=== PATIENT | female | born 1945 | race African-American/Black ===

== ENCOUNTER 2018-09-17 09:41 | Inpatient (IN) | payer MEDICARE, MEDICAID ==
[~2018-09-17] VITALS: Ht 154.9 cm; Wt 66.2 kg
[~2018-09-17 09:41] MED LIST: PHENL; RISP1; VENL25TA47
[2018-09-17] MEDS ORDERED: PHENL PO (09:57)
[2018-09-17] MEDS ORDERED: ASPI81 PO (09:57)
[2018-09-17] MEDS ORDERED: ATOR10TA84 PO (09:57)
[2018-09-17] MEDS ORDERED: OMEP20 PO (09:57)
[2018-09-17] MEDS ORDERED: AMLO-511 PO (09:57)
[2018-09-17 11:46] LABS: BASOPHILS % (AUTO) 0.6 % (0.0-2.0); EOSINOPHILS % (AUTO) 0.2 % (1.0-6.0); LYMPHOCYTES # (AUTO) 0.5 K/uL (1.0-4.8); LYMPHOCYTES % (AUTO) 8.2 % (22.0-44.0); MEAN CORPUSCULAR HEMOGLOBIN 29.7 pg (26.0-34.0); MEAN CORPUSCULAR HGB CONC 33.2 G/dL (31.0-37.0); MEAN CORPUSCULAR VOLUME 90 fL (80-100); MONOCYTES # (AUTO) 0.8 K/uL (0.1-1.0); MONOCYTES % (AUTO) 14.8 % (2.0-9.0); NEUTROPHILS # (AUTO) 4.2 K/uL (1.8-7.7); NEUTROPHILS % (AUTO) 76.2 % (40.0-70.0); PLATELET COUNT (AUTO) 406 K/uL (150-450); RED BLOOD CELL COUNT(AUTO) 3.69 MIL/uL (4.00-5.20); RED CELL DISTRIBUTION WIDTH 16.2 % (11.5-14.5)
[2018-09-17 12:16] LABS: ALANINE AMINOTRANSFERASE 16 U/L (12-78); ALBUMIN 1.9 g/dL (3.4-5.0); ALKALINE PHOSPHATASE 86 U/L (46-116); ANION GAP 12 mmol/L (8-16); ASPARTATE AMINOTRANSFERASE 27 U/L (15-37); BILIRUBIN,TOTAL 0.3 mg/dL (0.1-1.0); CALCIUM, TOTAL 8.1 mg/dL (8.8-10.5); CARBON DIOXIDE 29 mmol/L (22-29); CHLORIDE 93 mmol/L (98-107); CREATININE 0.42 mg/dL (0.60-1.30); GLUCOSE,RANDOM 100 mg/dL (70-110); SODIUM SERUM 134 mmol/L (136-145); TOTAL PROTEIN, SERUM 5.8 g/dL (6.4-8.2); UREA NITROGEN, BLOOD 7 mg/dL (7-18)
[2018-09-17 12:18] LABS: GLOMERULAR FILTR. RATE CALC > 60 mL/min (>60)
[2018-09-17 12:21] LABS: PHENYTOIN (DILANTIN) 28.2 mcg/mL (10.0-20.0)
[2018-09-17] MEDS ORDERED: ONDANSETRON HCL 4 MG/2 ML VIAL IVP PRN (13:00)
[2018-09-17] MEDS ORDERED: CLINDAMYCIN 600 MG/D5% WATER 50 ML IV ONE (13:00)
[2018-09-17] MEDS ORDERED: 0.9% SODIUM CHLORIDE 10 ML SYRINGE IVP PRN (13:00)
[2018-09-17] MEDS ORDERED: POTASSIUM CHLORIDE 10% 40 MEQ/30 ML LIQUID UDCUP PO ONE (13:00)
[2018-09-17 16:30] VITALS: BP 123/46
[2018-09-17] MEDS ORDERED: PNEUMOCOCCAL VACCINE POLYVALENT 0.5 ML VIAL [PPSV23] IM ONE (16:30)
[2018-09-17] MEDS: ACETAMINOPHEN 325 MG TABLET PO PRN ×2 (17:17→23:34)
[2018-09-17 20:13] VITALS: BP 109/44
[2018-09-17 23:31] VITALS: BP 105/45
[2018-09-17] MEDS ORDERED: ZOLPIDEM TARTRATE 5 MG TABLET PO PRN (23:45)
[2018-09-17] MEDS ORDERED: IPRATROPIUM BROMIDE 0.5 MG/2.5 ML NEB SOLUTION NEB PRN (23:45)
[2018-09-17] MEDS ORDERED: HYDROCODONE/ACETAMINOPHEN 5-325 MG TABLET PO PRN (23:45)
[2018-09-17] MEDS ORDERED: BISACODYL 10 MG RECTAL RECTAL SUPPOSITORY PR PRN (23:45)
[2018-09-17] MEDS ORDERED: ALBUTEROL SULFATE 2.5 MG/0.5 ML NEB SOLUTION NEB PRN (23:45)
[2018-09-17] MEDS ORDERED: MAGNESIUM HYDROXIDE SUSPENSION 30 ML UDCUP PO PRN (23:45)
[2018-09-17] MEDS ORDERED: MORPHINE SULFATE 4 MG/ML SYRINGE IVP PRN (23:45)
[2018-09-18] MEDS: HEPARIN SODIUM,PORCINE 5,000 UNITS/ML VIAL SQ SCH ×3 (00:17→16:46)
[2018-09-18] MEDS: PHENYTOIN 100 MG/4 ML SUSPENSION UDCUP PO SCH ×2 (00:24→09:12)
[2018-09-18 03:41] VITALS: BP 117/52
[2018-09-18] MEDS: ACETAMINOPHEN 325 MG TABLET PO PRN (03:44)
[2018-09-18 07:20] LABS: ANION GAP 9 mmol/L (8-16); CALCIUM, TOTAL 8.2 mg/dL (8.8-10.5); CARBON DIOXIDE 30 mmol/L (22-29); CHLORIDE 94 mmol/L (98-107); CREATININE 0.67 mg/dL (0.60-1.30); GLUCOSE,RANDOM 84 mg/dL (70-110); POTASSIUM 3.2 mmol/L (3.5-5.1); SODIUM SERUM 133 mmol/L (136-145); UREA NITROGEN, BLOOD 6 mg/dL (7-18)
[2018-09-18 07:22] LABS: GLOMERULAR FILTR. RATE CALC > 60 mL/min (>60)
[2018-09-18 08:26] VITALS: BP 112/53
[2018-09-18] MEDS: DOCUSATE SODIUM 100 MG CAPSULE PO SCH ×2 (08:41→21:00)
[2018-09-18] MEDS: AmLODIPine BESYLATE 5 MG TABLET PO SCH (09:00)
[2018-09-18] MEDS ORDERED: PANTOPRAZOLE SODIUM 40 MG/VIAL IVP SCH (09:00)
[2018-09-18] MEDS: ATORVASTATIN CALCIUM 10 MG TABLET PO SCH (09:12)
[2018-09-18] MEDS: OMEPRAZOLE 20 MG CAPSULE PO SCH (09:12)
[2018-09-18] MEDS: ASPIRIN 81 MG CHEWABLE TABLET PO SCH (09:12)
[2018-09-18] MEDS ORDERED: MAGNESIUM OXIDE 400 MG TABLET PO PRN (11:15)
[2018-09-18] MEDS ORDERED: MAGNESIUM SULFATE 2 GM/WATER 50 ML IV PRN (11:15)
[2018-09-18] MEDS ORDERED: MAGNESIUM SULFATE 4 GM/WATER 100 ML IV PRN (11:15)
[2018-09-18 12:01] LABS: ALBUMIN 1.9 g/dL (3.4-5.0)
[2018-09-18 12:07] VITALS: BP 117/51
[2018-09-18 12:36] LABS: MAGNESIUM 1.1 mg/dL (1.80-2.40)
[2018-09-18] MEDS: POTASSIUM CHLORIDE 20 MEQ ER TABLET PO PRN (12:50)
[2018-09-18] MEDS ORDERED: SODIUM CHLORIDE 0.9% 250 ML IV ONE (13:15)
[2018-09-18] MEDS: CLINDAMYCIN 300 MG/D5% WATER 50 ML IV SCH ×2 (13:22→18:42)
[2018-09-18 13:54] LABS: APPEARANCE,URINE HAZY (CLEAR); BILIRUBIN,URINE PRELIM. POSITIVE (NEGATIVE); GLUCOSE, URINE (UA) NEGATIVE (NEGATIVE); KETONES,URINE 15 mg/dL (NEGATIVE); LEUKOCYTE ESTERASE ,URINE SMALL (NEGATIVE); NITRATE,URINE NEGATIVE (NEGATIVE); OCCULT BLOOD,URINE LARGE (NEGATIVE); PROTEIN,URINE POS 1+ (NEGATIVE)
[2018-09-18 14:04] LABS: BACTERIA,URINE Few /HPF (None Seen); YEAST,URINE Few /HPF (None Seen)
[2018-09-18 14:05] LABS: SQUAMOUS EPITHELIAL CELL,UR Rare /LPF (None Seen)
[2018-09-18 16:29] VITALS: BP 97/44
[2018-09-18 19:15] VITALS: BP 106/46
[2018-09-18 23:15] VITALS: BP 103/58
[2018-09-19] MEDS: CLINDAMYCIN 300 MG/D5% WATER 50 ML IV SCH ×5 (00:02→23:13)
[2018-09-19] MEDS: HEPARIN SODIUM,PORCINE 5,000 UNITS/ML VIAL SQ SCH ×4 (00:03→23:12)
[2018-09-19 04:45] VITALS: BP 109/56
[2018-09-19 05:33] LABS: MAGNESIUM 2.5 mg/dL (1.80-2.40)
[2018-09-19] MEDS: OMEPRAZOLE 20 MG CAPSULE PO SCH (08:02)
[2018-09-19] MEDS: DOCUSATE SODIUM 100 MG CAPSULE PO SCH ×2 (08:02→20:26)
[2018-09-19] MEDS: ATORVASTATIN CALCIUM 10 MG TABLET PO SCH (08:02)
[2018-09-19] MEDS: ASPIRIN 81 MG CHEWABLE TABLET PO SCH (08:02)
[2018-09-19] MEDS: AmLODIPine BESYLATE 5 MG TABLET PO SCH (08:03)
[2018-09-19 08:18] VITALS: BP 99/41
[2018-09-19 10:16] LABS: POTASSIUM 3.4 mmol/L (3.5-5.1)
[2018-09-19] MEDS: POTASSIUM CHLORIDE 20 MEQ ER TABLET PO PRN (11:03)
[2018-09-19 11:23] VITALS: BP 103/56
[2018-09-19 15:19] LABS: BASOPHILS % (AUTO) 0.3 % (0.0-2.0); EOSINOPHILS % (AUTO) 3.3 % (1.0-6.0); HEMOGLOBIN 10.6 g/dL (12.0-16.0); LYMPHOCYTES # (AUTO) 0.8 K/uL (1.0-4.8); LYMPHOCYTES % (AUTO) 15.1 % (22.0-44.0); MEAN CORPUSCULAR HEMOGLOBIN 29.2 pg (26.0-34.0); MEAN CORPUSCULAR HGB CONC 33.1 G/dL (31.0-37.0); MEAN CORPUSCULAR VOLUME 88 fL (80-100); MONOCYTES # (AUTO) 0.4 K/uL (0.1-1.0); MONOCYTES % (AUTO) 7.6 % (2.0-9.0); NEUTROPHILS # (AUTO) 3.9 K/uL (1.8-7.7); NEUTROPHILS % (AUTO) 73.7 % (40.0-70.0); PLATELET COUNT (AUTO) 299 K/uL (150-450); RED BLOOD CELL COUNT(AUTO) 3.63 MIL/uL (4.00-5.20)
[2018-09-19 15:41] VITALS: BP 106/50
[2018-09-19 15:46] LABS: ANION GAP 2 mmol/L (8-16); CALCIUM, TOTAL 7.9 mg/dL (8.8-10.5); CARBON DIOXIDE 35 mmol/L (22-29); CHLORIDE 95 mmol/L (98-107); CREATININE 0.55 mg/dL (0.60-1.30); GLUCOSE,RANDOM 106 mg/dL (70-110); POTASSIUM 4.1 mmol/L (3.5-5.1); SODIUM SERUM 132 mmol/L (136-145); UREA NITROGEN, BLOOD 16 mg/dL (7-18)
[2018-09-19 15:47] LABS: GLOMERULAR FILTR. RATE CALC > 60 mL/min (>60)
[2018-09-19 15:52] LABS: ALANINE AMINOTRANSFERASE 541 U/L (12-78); ALBUMIN 1.7 g/dL (3.4-5.0); ALKALINE PHOSPHATASE 122 U/L (46-116); BILIRUBIN,TOTAL 0.5 mg/dL (0.1-1.0); TOTAL PROTEIN, SERUM 5.1 g/dL (6.4-8.2)
[2018-09-19 15:53] LABS: ASPARTATE AMINOTRANSFERASE 1910 U/L (15-37)
[2018-09-19 16:30] LABS: PHENYTOIN (DILANTIN) 19.3 mcg/mL (10.0-20.0)
[2018-09-19 19:37] VITALS: BP 108/43
[2018-09-19 23:47] VITALS: BP 110/47
[2018-09-20 04:26] VITALS: BP 117/55
[2018-09-20] MEDS: CLINDAMYCIN 300 MG/D5% WATER 50 ML IV SCH ×2 (05:14→11:17)
[2018-09-20 06:03] LABS: BASOPHILS % (AUTO) 0.4 % (0.0-2.0); EOSINOPHILS % (AUTO) 1.4 % (1.0-6.0); HEMATOCRIT 33.1 % (36-46); LYMPHOCYTES # (AUTO) 0.7 K/uL (1.0-4.8); LYMPHOCYTES % (AUTO) 13.3 % (22.0-44.0); MEAN CORPUSCULAR HEMOGLOBIN 29.1 pg (26.0-34.0); MEAN CORPUSCULAR HGB CONC 33.2 G/dL (31.0-37.0); MEAN CORPUSCULAR VOLUME 88 fL (80-100); MONOCYTES # (AUTO) 0.6 K/uL (0.1-1.0); MONOCYTES % (AUTO) 11.9 % (2.0-9.0); NEUTROPHILS # (AUTO) 3.6 K/uL (1.8-7.7); PLATELET COUNT (AUTO) 294 K/uL (150-450); RED BLOOD CELL COUNT(AUTO) 3.78 MIL/uL (4.00-5.20); RED CELL DISTRIBUTION WIDTH 15.9 % (11.5-14.5)
[2018-09-20 06:59] LABS: ALANINE AMINOTRANSFERASE 622 U/L (12-78); ALBUMIN 1.7 g/dL (3.4-5.0); ALKALINE PHOSPHATASE 127 U/L (46-116); ANION GAP 6 mmol/L (8-16); BILIRUBIN,TOTAL 0.5 mg/dL (0.1-1.0); CALCIUM, TOTAL 7.7 mg/dL (8.8-10.5); CARBON DIOXIDE 32 mmol/L (22-29); CHLORIDE 93 mmol/L (98-107); CREATININE 0.57 mg/dL (0.60-1.30); GLUCOSE,RANDOM 75 mg/dL (70-110); POTASSIUM 4.2 mmol/L (3.5-5.1); SODIUM SERUM 131 mmol/L (136-145); TOTAL PROTEIN, SERUM 5.1 g/dL (6.4-8.2); UREA NITROGEN, BLOOD 17 mg/dL (7-18)
[2018-09-20 07:01] LABS: ASPARTATE AMINOTRANSFERASE 1800 U/L (15-37); GLOMERULAR FILTR. RATE CALC > 60 mL/min (>60)
[2018-09-20 07:30] VITALS: BP 107/44
[2018-09-20] MEDS: HEPARIN SODIUM,PORCINE 5,000 UNITS/ML VIAL SQ SCH ×3 (08:12→23:48)
[2018-09-20] MEDS: ASPIRIN 81 MG CHEWABLE TABLET PO SCH (08:12)
[2018-09-20] MEDS: DOCUSATE SODIUM 100 MG CAPSULE PO SCH ×2 (08:13→21:00)
[2018-09-20] MEDS: OMEPRAZOLE 20 MG CAPSULE PO SCH (08:13)
[2018-09-20] MEDS: ATORVASTATIN CALCIUM 10 MG TABLET PO SCH (08:13)
[2018-09-20] MEDS: AmLODIPine BESYLATE 5 MG TABLET PO SCH (08:13)
[2018-09-20] MEDS: ONDANSETRON HCL 4 MG/2 ML VIAL IVP PRN ×2 (10:35→16:58)
[2018-09-20 11:56] VITALS: BP 94/52
[2018-09-20] MEDS: ACETAMINOPHEN 325 MG TABLET PO PRN (12:00)
[2018-09-20] MEDS ORDERED: SODIUM CHLORIDE 0.9% 250 ML IV ONE (12:15)
[2018-09-20] MEDS: SODIUM CHLORIDE 0.9% 1,000 ML IV SCH (14:12)
[2018-09-20 15:40] VITALS: BP 104/44
[2018-09-20] MEDS ORDERED: BARIUM SULFATE 0.1% SUSPENSION 450 ML BOTTLE ONE (16:51)
[2018-09-20] MEDS ORDERED: IOVERSOL 320 MG/ML 100 ML VIAL ONE (18:41)
[2018-09-20] MEDS ORDERED: SODIUM CHLORIDE 0.9% 100 ML ONE (18:41)
[2018-09-20 20:00] VITALS: BP 115/56
[2018-09-20 23:40] VITALS: BP 111/69
[2018-09-21] MEDS: SODIUM CHLORIDE 0.9% 1,000 ML IV SCH ×3 (01:05→19:59)
[2018-09-21 04:29] VITALS: BP 113/49
[2018-09-21 07:28] LABS: HEMATOCRIT 32.1 % (36-46); HEMOGLOBIN 10.8 g/dL (12.0-16.0); MEAN CORPUSCULAR HEMOGLOBIN 29.3 pg (26.0-34.0); MEAN CORPUSCULAR HGB CONC 33.6 G/dL (31.0-37.0); MEAN CORPUSCULAR VOLUME 87 fL (80-100); PLATELET COUNT (AUTO) 267 K/uL (150-450); RED BLOOD CELL COUNT(AUTO) 3.68 MIL/uL (4.00-5.20); RED CELL DISTRIBUTION WIDTH 16.1 % (11.5-14.5)
[2018-09-21 07:36] VITALS: BP 126/54
[2018-09-21 08:00] LABS: ALANINE AMINOTRANSFERASE 684 U/L (12-78); ALBUMIN 1.7 g/dL (3.4-5.0); ALKALINE PHOSPHATASE 125 U/L (46-116); ANION GAP 4 mmol/L (8-16); BILIRUBIN,TOTAL 0.5 mg/dL (0.1-1.0); CALCIUM, TOTAL 7.6 mg/dL (8.8-10.5); CARBON DIOXIDE 31 mmol/L (22-29); CHLORIDE 94 mmol/L (98-107); CREATININE 0.43 mg/dL (0.60-1.30); GLUCOSE,RANDOM 76 mg/dL (70-110); POTASSIUM 4.6 mmol/L (3.5-5.1); SODIUM SERUM 129 mmol/L (136-145); TOTAL PROTEIN, SERUM 5.1 g/dL (6.4-8.2); UREA NITROGEN, BLOOD 14 mg/dL (7-18)
[2018-09-21 08:01] LABS: ASPARTATE AMINOTRANSFERASE 1526 U/L (15-37); GLOMERULAR FILTR. RATE CALC > 60 mL/min (>60)
[2018-09-21] MEDS: DOCUSATE SODIUM 100 MG CAPSULE PO SCH ×2 (09:22→19:59)
[2018-09-21] MEDS: ASPIRIN 81 MG CHEWABLE TABLET PO SCH (09:22)
[2018-09-21] MEDS: OMEPRAZOLE 20 MG CAPSULE PO SCH (09:23)
[2018-09-21] MEDS: ATORVASTATIN CALCIUM 10 MG TABLET PO SCH (09:23)
[2018-09-21] MEDS: HEPARIN SODIUM,PORCINE 5,000 UNITS/ML VIAL SQ SCH ×2 (09:25→15:41)
[2018-09-21] MEDS: AmLODIPine BESYLATE 5 MG TABLET PO SCH (09:26)
[2018-09-21 10:14] LABS: BAND NEUTROPHILS % (MANUAL) 6 % (0-5); BASOPHILS % (MANUAL) 1 % (0-2); LYMPHOCYTES % (MANUAL) 4 % (22-44); MONOCYTES % (MANUAL) 16 % (2-9); SEGMENTED NEUTROPHILS % 73 % (40-70)
[2018-09-21 11:27] VITALS: BP 111/47
[2018-09-21] MEDS ORDERED: PHENYTOIN SODIUM 100 MG ER CAPSULE PO ONE (14:00)
[2018-09-21 15:14] VITALS: BP 111/42
[2018-09-21 19:55] VITALS: BP 101/49
[2018-09-22] VITALS (7 sets, daily range): BP systolic 100–114; BP diastolic 42–63
[2018-09-22] MEDS: HEPARIN SODIUM,PORCINE 5,000 UNITS/ML VIAL SQ SCH ×4 (00:25→23:47)
[2018-09-22] MEDS: SODIUM CHLORIDE 0.9% 1,000 ML IV SCH ×2 (05:20→16:39)
[2018-09-22 06:03] LABS: BASOPHILS % (AUTO) 0.3 % (0.0-2.0); EOSINOPHILS % (AUTO) 1.2 % (1.0-6.0); HEMOGLOBIN 9.6 g/dL (12.0-16.0); LYMPHOCYTES # (AUTO) 0.8 K/uL (1.0-4.8); LYMPHOCYTES % (AUTO) 14.9 % (22.0-44.0); MEAN CORPUSCULAR HEMOGLOBIN 29.7 pg (26.0-34.0); MEAN CORPUSCULAR HGB CONC 34.1 G/dL (31.0-37.0); MEAN CORPUSCULAR VOLUME 87 fL (80-100); MONOCYTES % (AUTO) 19.1 % (2.0-9.0); NEUTROPHILS # (AUTO) 3.5 K/uL (1.8-7.7); NEUTROPHILS % (AUTO) 64.5 % (40.0-70.0); PLATELET COUNT (AUTO) 249 K/uL (150-450); RED BLOOD CELL COUNT(AUTO) 3.22 MIL/uL (4.00-5.20); RED CELL DISTRIBUTION WIDTH 16.1 % (11.5-14.5)
[2018-09-22 06:16] LABS: INR 1.2 (0.9-1.1); PROTHROMBIN TIME 12.2 SEC (9.4-11.6)
[2018-09-22 06:32] LABS: ALANINE AMINOTRANSFERASE 642 U/L (12-78); ALBUMIN 1.7 g/dL (3.4-5.0); ALKALINE PHOSPHATASE 151 U/L (46-116); ANION GAP 3 mmol/L (8-16); BILIRUBIN,TOTAL 0.5 mg/dL (0.1-1.0); CALCIUM, TOTAL 7.4 mg/dL (8.8-10.5); CARBON DIOXIDE 30 mmol/L (22-29); CHLORIDE 96 mmol/L (98-107); CREATININE 0.32 mg/dL (0.60-1.30); GLUCOSE,RANDOM 83 mg/dL (70-110); POTASSIUM 4.6 mmol/L (3.5-5.1); SODIUM SERUM 129 mmol/L (136-145); TOTAL PROTEIN, SERUM 4.6 g/dL (6.4-8.2); UREA NITROGEN, BLOOD 8 mg/dL (7-18)
[2018-09-22 06:34] LABS: ASPARTATE AMINOTRANSFERASE 1044 U/L (15-37); GLOMERULAR FILTR. RATE CALC > 60 mL/min (>60)
[2018-09-22] MEDS: OMEPRAZOLE 20 MG CAPSULE PO SCH (08:19)
[2018-09-22] MEDS: AmLODIPine BESYLATE 5 MG TABLET PO SCH (08:19)
[2018-09-22] MEDS: DOCUSATE SODIUM 100 MG CAPSULE PO SCH ×2 (08:19→23:46)
[2018-09-22] MEDS: ASPIRIN 81 MG CHEWABLE TABLET PO SCH (08:19)
[2018-09-22] MEDS: ATORVASTATIN CALCIUM 10 MG TABLET PO SCH (08:19)
[2018-09-22] MEDS ORDERED: IOVERSOL 320 MG/ML 100 ML VIAL ONE (15:56)
[2018-09-22] MEDS ORDERED: SODIUM CHLORIDE 0.9% 100 ML ONE (15:57)
[2018-09-23 05:09] VITALS: BP 110/43
[2018-09-23] MEDS: SODIUM CHLORIDE 0.9% 1,000 ML IV SCH ×3 (06:16→22:48)
[2018-09-23 06:28] LABS: ALANINE AMINOTRANSFERASE 428 U/L (12-78); ALBUMIN 1.6 g/dL (3.4-5.0); ALKALINE PHOSPHATASE 137 U/L (46-116); ANION GAP 2 mmol/L (8-16); ASPARTATE AMINOTRANSFERASE 405 U/L (15-37); BILIRUBIN,TOTAL 0.3 mg/dL (0.1-1.0); CALCIUM, TOTAL 7.8 mg/dL (8.8-10.5); CARBON DIOXIDE 30 mmol/L (22-29); CHLORIDE 102 mmol/L (98-107); CREATININE 0.34 mg/dL (0.60-1.30); GLUCOSE,RANDOM 76 mg/dL (70-110); POTASSIUM 4.6 mmol/L (3.5-5.1); SODIUM SERUM 134 mmol/L (136-145); TOTAL PROTEIN, SERUM 4.9 g/dL (6.4-8.2); UREA NITROGEN, BLOOD 4 mg/dL (7-18)
[2018-09-23 06:29] LABS: GLOMERULAR FILTR. RATE CALC > 60 mL/min (>60)
[2018-09-23 06:41] LABS: BASOPHILS % (AUTO) 0.4 % (0.0-2.0); HEMATOCRIT 30.3 % (36-46); LYMPHOCYTES # (AUTO) 1.5 K/uL (1.0-4.8); LYMPHOCYTES % (AUTO) 35.3 % (22.0-44.0); MEAN CORPUSCULAR HEMOGLOBIN 29.3 pg (26.0-34.0); MEAN CORPUSCULAR HGB CONC 33.2 G/dL (31.0-37.0); MEAN CORPUSCULAR VOLUME 88 fL (80-100); MONOCYTES # (AUTO) 0.5 K/uL (0.1-1.0); MONOCYTES % (AUTO) 11.3 % (2.0-9.0); NEUTROPHILS # (AUTO) 2.3 K/uL (1.8-7.7); PLATELET COUNT (AUTO) 259 K/uL (150-450); RED BLOOD CELL COUNT(AUTO) 3.43 MIL/uL (4.00-5.20); RED CELL DISTRIBUTION WIDTH 16.8 % (11.5-14.5)
[2018-09-23 07:06] VITALS: BP 113/52
[2018-09-23] MEDS: ATORVASTATIN CALCIUM 10 MG TABLET PO SCH (08:52)
[2018-09-23] MEDS: ASPIRIN 81 MG CHEWABLE TABLET PO SCH (08:52)
[2018-09-23] MEDS: DOCUSATE SODIUM 100 MG CAPSULE PO SCH ×2 (08:53→21:00)
[2018-09-23] MEDS: AmLODIPine BESYLATE 5 MG TABLET PO SCH (08:53)
[2018-09-23] MEDS: OMEPRAZOLE 20 MG CAPSULE PO SCH (08:53)
[2018-09-23] MEDS: HEPARIN SODIUM,PORCINE 5,000 UNITS/ML VIAL SQ SCH ×2 (08:53→16:47)
[2018-09-23 11:28] VITALS: BP 108/58
[2018-09-23 15:25] VITALS: BP 111/59
[2018-09-23 18:46] LABS: PHENYTOIN (DILANTIN) 12.8 mcg/mL (10.0-20.0)
[2018-09-23 19:28] VITALS: BP 112/53
[2018-09-24] VITALS (7 sets, daily range): BP systolic 116–139; BP diastolic 44–63
[2018-09-24] MEDS: HEPARIN SODIUM,PORCINE 5,000 UNITS/ML VIAL SQ SCH ×3 (01:52→16:35)
[2018-09-24 06:22] LABS: BASOPHILS % (AUTO) 0.6 % (0.0-2.0); EOSINOPHILS % (AUTO) 1.6 % (1.0-6.0); HEMATOCRIT 29.9 % (36-46); LYMPHOCYTES # (AUTO) 0.7 K/uL (1.0-4.8); LYMPHOCYTES % (AUTO) 13.2 % (22.0-44.0); MEAN CORPUSCULAR HEMOGLOBIN 29.3 pg (26.0-34.0); MEAN CORPUSCULAR HGB CONC 33.4 G/dL (31.0-37.0); MEAN CORPUSCULAR VOLUME 88 fL (80-100); MONOCYTES # (AUTO) 0.6 K/uL (0.1-1.0); MONOCYTES % (AUTO) 11.8 % (2.0-9.0); NEUTROPHILS # (AUTO) 3.8 K/uL (1.8-7.7); NEUTROPHILS % (AUTO) 72.8 % (40.0-70.0); PLATELET COUNT (AUTO) 309 K/uL (150-450); RED CELL DISTRIBUTION WIDTH 16.6 % (11.5-14.5)
[2018-09-24 06:38] LABS: ALANINE AMINOTRANSFERASE 291 U/L (12-78); ALBUMIN 1.6 g/dL (3.4-5.0); ALKALINE PHOSPHATASE 125 U/L (46-116); ANION GAP 4 mmol/L (8-16); ASPARTATE AMINOTRANSFERASE 158 U/L (15-37); BILIRUBIN,TOTAL 0.3 mg/dL (0.1-1.0); CALCIUM, TOTAL 7.8 mg/dL (8.8-10.5); CARBON DIOXIDE 28 mmol/L (22-29); CHLORIDE 102 mmol/L (98-107); CREATININE 0.39 mg/dL (0.60-1.30); GLUCOSE,RANDOM 80 mg/dL (70-110); POTASSIUM 4.1 mmol/L (3.5-5.1); SODIUM SERUM 134 mmol/L (136-145); UREA NITROGEN, BLOOD 4 mg/dL (7-18)
[2018-09-24 06:57] LABS: GLOMERULAR FILTR. RATE CALC > 60 mL/min (>60)
[2018-09-24] MEDS: OMEPRAZOLE 20 MG CAPSULE PO SCH (08:28)
[2018-09-24] MEDS: ATORVASTATIN CALCIUM 10 MG TABLET PO SCH (08:28)
[2018-09-24] MEDS: ASPIRIN 81 MG CHEWABLE TABLET PO SCH (08:28)
[2018-09-24] MEDS: AmLODIPine BESYLATE 5 MG TABLET PO SCH (08:28)
[2018-09-24] MEDS: DOCUSATE SODIUM 100 MG CAPSULE PO SCH ×2 (08:29→21:00)
[2018-09-24] MEDS: SODIUM CHLORIDE 0.9% 1,000 ML IV SCH ×2 (08:29→17:50)
[2018-09-24 21:23] LABS: PHENYTOIN (DILANTIN) 8.9 mcg/mL (10.0-20.0)
[2018-09-25] MEDS: HEPARIN SODIUM,PORCINE 5,000 UNITS/ML VIAL SQ SCH ×3 (00:56→16:16)
[2018-09-25] MEDS: SODIUM CHLORIDE 0.9% 1,000 ML IV SCH ×2 (04:28→16:16)
[2018-09-25 05:10] VITALS: BP 125/53
[2018-09-25 07:21] LABS: BASOPHILS % (AUTO) 0.9 % (0.0-2.0); EOSINOPHILS % (AUTO) 1.3 % (1.0-6.0); HEMATOCRIT 31.8 % (36-46); HEMOGLOBIN 10.5 g/dL (12.0-16.0); LYMPHOCYTES # (AUTO) 1.2 K/uL (1.0-4.8); LYMPHOCYTES % (AUTO) 22.4 % (22.0-44.0); MEAN CORPUSCULAR HEMOGLOBIN 29.1 pg (26.0-34.0); MEAN CORPUSCULAR VOLUME 88 fL (80-100); MONOCYTES # (AUTO) 0.4 K/uL (0.1-1.0); MONOCYTES % (AUTO) 8.5 % (2.0-9.0); NEUTROPHILS # (AUTO) 3.5 K/uL (1.8-7.7); NEUTROPHILS % (AUTO) 66.9 % (40.0-70.0); PLATELET COUNT (AUTO) 361 K/uL (150-450); RED BLOOD CELL COUNT(AUTO) 3.59 MIL/uL (4.00-5.20); RED CELL DISTRIBUTION WIDTH 16.3 % (11.5-14.5)
[2018-09-25 07:54] VITALS: BP 141/71
[2018-09-25 08:07] LABS: ALANINE AMINOTRANSFERASE 215 U/L (12-78); ALBUMIN 1.6 g/dL (3.4-5.0); ALKALINE PHOSPHATASE 115 U/L (46-116); ANION GAP 5 mmol/L (8-16); ASPARTATE AMINOTRANSFERASE 97 U/L (15-37); BILIRUBIN,TOTAL 0.3 mg/dL (0.1-1.0); CALCIUM, TOTAL 8.2 mg/dL (8.8-10.5); CARBON DIOXIDE 28 mmol/L (22-29); CHLORIDE 104 mmol/L (98-107); CREATININE 0.28 mg/dL (0.60-1.30); GLUCOSE,RANDOM 68 mg/dL (70-110); POTASSIUM 4.3 mmol/L (3.5-5.1); SODIUM SERUM 137 mmol/L (136-145); TOTAL PROTEIN, SERUM 5.1 g/dL (6.4-8.2); UREA NITROGEN, BLOOD 4 mg/dL (7-18)
[2018-09-25 08:12] LABS: GLOMERULAR FILTR. RATE CALC > 60 mL/min (>60)
[2018-09-25] MEDS: DOCUSATE SODIUM 100 MG CAPSULE PO SCH ×3 (09:00→20:54)
[2018-09-25] MEDS: OMEPRAZOLE 20 MG CAPSULE PO SCH (09:22)
[2018-09-25] MEDS: AmLODIPine BESYLATE 5 MG TABLET PO SCH (09:22)
[2018-09-25] MEDS: ASPIRIN 81 MG CHEWABLE TABLET PO SCH (09:22)
[2018-09-25 11:52] VITALS: BP 119/72
[2018-09-25] MEDS ORDERED: PHENYTOIN SODIUM 500 MG in SODIUM CHLORIDE 0.9% 100 ML IV ONE (12:00)
[2018-09-25] MEDS ORDERED: AMOX TR/POT CLAV 500 MG/125 MG TABLET PO ONE (13:00)
[2018-09-25 16:15] VITALS: BP 105/49
[2018-09-25 20:35] VITALS: BP 119/58
[2018-09-25] MEDS: PHENYTOIN 100 MG/4 ML SUSPENSION UDCUP PO SCH (20:44)
[2018-09-25] MEDS: AMOX TR/POT CLAV 500 MG/125 MG TABLET PO SCH (20:45)
[2018-09-26] VITALS (7 sets, daily range): BP systolic 103–137; BP diastolic 37–65
[2018-09-26] MEDS: SODIUM CHLORIDE 0.9% 1,000 ML IV SCH ×2 (00:36→10:00)
[2018-09-26] MEDS: HEPARIN SODIUM,PORCINE 5,000 UNITS/ML VIAL SQ SCH ×3 (00:36→16:50)
[2018-09-26 06:20] LABS: BASOPHILS % (AUTO) 0.8 % (0.0-2.0); EOSINOPHILS % (AUTO) 0.9 % (1.0-6.0); HEMATOCRIT 27.7 % (36-46); HEMOGLOBIN 9.4 g/dL (12.0-16.0); LYMPHOCYTES # (AUTO) 1.2 K/uL (1.0-4.8); LYMPHOCYTES % (AUTO) 19.8 % (22.0-44.0); MEAN CORPUSCULAR HEMOGLOBIN 29.4 pg (26.0-34.0); MEAN CORPUSCULAR VOLUME 87 fL (80-100); MONOCYTES # (AUTO) 0.5 K/uL (0.1-1.0); MONOCYTES % (AUTO) 7.4 % (2.0-9.0); NEUTROPHILS # (AUTO) 4.4 K/uL (1.8-7.7); NEUTROPHILS % (AUTO) 71.1 % (40.0-70.0); PLATELET COUNT (AUTO) 399 K/uL (150-450); RED BLOOD CELL COUNT(AUTO) 3.21 MIL/uL (4.00-5.20); RED CELL DISTRIBUTION WIDTH 16.8 % (11.5-14.5)
[2018-09-26 06:31] LABS: ALANINE AMINOTRANSFERASE 147 U/L (12-78); ALBUMIN 1.5 g/dL (3.4-5.0); ALKALINE PHOSPHATASE 102 U/L (46-116); ANION GAP 6 mmol/L (8-16); ASPARTATE AMINOTRANSFERASE 48 U/L (15-37); BILIRUBIN,TOTAL 0.3 mg/dL (0.1-1.0); CALCIUM, TOTAL 7.9 mg/dL (8.8-10.5); CARBON DIOXIDE 27 mmol/L (22-29); CHLORIDE 104 mmol/L (98-107); CREATININE 0.48 mg/dL (0.60-1.30); GLUCOSE,RANDOM 81 mg/dL (70-110); SODIUM SERUM 137 mmol/L (136-145); UREA NITROGEN, BLOOD 5 mg/dL (7-18)
[2018-09-26 06:36] LABS: GLOMERULAR FILTR. RATE CALC > 60 mL/min (>60)
[2018-09-26] MEDS: AMOX TR/POT CLAV 500 MG/125 MG TABLET PO SCH ×2 (08:51→21:17)
[2018-09-26] MEDS: OMEPRAZOLE 20 MG CAPSULE PO SCH (08:51)
[2018-09-26] MEDS: DOCUSATE SODIUM 100 MG CAPSULE PO SCH ×2 (08:52→21:00)
[2018-09-26] MEDS: PHENYTOIN 100 MG/4 ML SUSPENSION UDCUP PO SCH ×2 (08:52→21:17)
[2018-09-26] MEDS: ASPIRIN 81 MG CHEWABLE TABLET PO SCH (08:52)
[2018-09-26 10:37] LABS: PHENYTOIN (DILANTIN) 11.5 mcg/mL (10.0-20.0)
[2018-09-26] MEDS: AmLODIPine BESYLATE 5 MG TABLET PO SCH (12:47)
[2018-09-27] MEDS: HEPARIN SODIUM,PORCINE 5,000 UNITS/ML VIAL SQ SCH ×3 (00:50→16:00)
[2018-09-27 03:44] VITALS: BP 130/61
[2018-09-27 07:47] VITALS: BP 125/63
[2018-09-27] MEDS: DOCUSATE SODIUM 100 MG CAPSULE PO SCH (08:07)
[2018-09-27] MEDS: AmLODIPine BESYLATE 5 MG TABLET PO SCH (08:07)
[2018-09-27] MEDS: ASPIRIN 81 MG CHEWABLE TABLET PO SCH (08:07)
[2018-09-27] MEDS: PHENYTOIN 100 MG/4 ML SUSPENSION UDCUP PO SCH (08:07)
[2018-09-27] MEDS: OMEPRAZOLE 20 MG CAPSULE PO SCH (08:07)
[2018-09-27] MEDS: AMOX TR/POT CLAV 500 MG/125 MG TABLET PO SCH (08:07)
[2018-09-27 11:21] VITALS: BP 118/69
[2018-09-27] MEDS ORDERED: AMOX1TAB15 PO (15:19)
== END 2018-09-27 18:10 | disposition home or self-care (01) | DRG 441 ==
LOC: EMS 09:42 → 5S 13:33 → 5N 09-21 21:04
PROVIDERS: ADMIT Hospitalist; ATTEND Hospitalist
DX: K72.00 Acute and subacute hepatic failure without coma (principal); E43 Unspecified severe protein-calorie malnutrition; R65.10 Systemic inflammatory response syndrome (SIRS) of non-infectious origin without acute organ dysfunction; K05.30 Chronic periodontitis, unspecified; T42.0X5A Adverse effect of hydantoin derivatives, initial encounter; E78.5 Hyperlipidemia, unspecified; E87.6 Hypokalemia; F25.9 Schizoaffective disorder, unspecified; G40.909 Epilepsy, unspecified, not intractable, without status epilepticus; G89.29 Other chronic pain; I10 Essential (primary) hypertension; K05.10 Chronic gingivitis, plaque induced; K80.20 Calculus of gallbladder without cholecystitis without obstruction; R13.10 Dysphagia, unspecified; Z96.642 Presence of left artificial hip joint; Z79.82 Long term (current) use of aspirin; Z79.899 Other long term (current) drug therapy; Z68.27 Body mass index [BMI] 27.0-27.9, adult; Z28.21 Immunization not carried out because of patient refusal
CPT/HCPCS: 70491; 71250; 74177; 76700; 80074; 83735; 84132; 84145; 87040; 92610; 93005; 96365; 97110; 97116; 97162; 97166; 97530; 97535; 99291; G0378; G0480; J1165; J1644; J2405; J3475; J3490; J7030; J7050

== ENCOUNTER 2019-11-09 18:18 | Inpatient (IN) | payer MEDICARE, MEDICAID ==
[~2019-11-09] VITALS: Ht 154.9 cm; Wt 46.8 kg
[~2019-11-09 18:18] MED LIST changes: +AMLO5TAB9 PO; +AMOX1TAB15 PO; +ASPI-728 PO; +ATOR10TA84 PO; +OMEP20 PO; -PHENL; +PHENL PO; -RISP1; -VENL25TA47
[2019-11-09 19:42] LABS: BASOPHILS % (AUTO) 0.8 % (0.0-2.0); EOSINOPHILS % (AUTO) 0.1 % (1.0-6.0); HEMOGLOBIN 12.8 g/dL (12.0-16.0); LYMPHOCYTES % (AUTO) 11.8 % (22.0-44.0); MEAN CORPUSCULAR HEMOGLOBIN 29.8 pg (26.0-34.0); MEAN CORPUSCULAR HGB CONC 32.8 G/dL (31.0-37.0); MEAN CORPUSCULAR VOLUME 91 fL (80-100); MONOCYTES # (AUTO) 0.6 K/uL (0.1-1.0); NEUTROPHILS # (AUTO) 6.5 K/uL (1.8-7.7); NEUTROPHILS % (AUTO) 80.3 % (40.0-70.0); PLATELET COUNT (AUTO) 294 K/uL (150-450); RED BLOOD CELL COUNT(AUTO) 4.29 MIL/uL (4.00-5.20); RED CELL DISTRIBUTION WIDTH 16.3 % (11.5-14.5)
[2019-11-09 19:48] LABS: APPEARANCE,URINE CLOUDY (CLEAR); BILIRUBIN,URINE NEGATIVE (NEGATIVE); GLUCOSE, URINE (UA) NEGATIVE (NEGATIVE); KETONES,URINE NEGATIVE (NEGATIVE); LEUKOCYTE ESTERASE ,URINE NEGATIVE (NEGATIVE); NITRATE,URINE NEGATIVE (NEGATIVE); OCCULT BLOOD,URINE LARGE (NEGATIVE); PH,URINE 5.5 (5.0-8.0); PROTEIN,URINE POS 1+ (NEGATIVE)
[2019-11-09 19:54] LABS: AMPHET/METH SCREEN,URINE NEGATIVE (NEGATIVE); BARBITURATE SCREEN, URINE NEGATIVE (NEGATIVE); BENZODIAZEPINES SCREEN,URINE NEGATIVE (NEGATIVE); CANNABINOID SCREEN,URINE NEGATIVE (NEGATIVE); COCAINE SCREEN,URINE NEGATIVE (NEGATIVE); METHADONE SCREEN, URINE NEGATIVE (NEGATIVE); OPIATE SCREEN,URINE NEGATIVE (NEGATIVE)
[2019-11-09 19:54] LABS: ANION GAP 10 mmol/L (8-16); CARBON DIOXIDE 30 mmol/L (22-29); CHLORIDE 106 mmol/L (98-107); CREATININE 0.84 mg/dL (0.60-1.30); GLUCOSE,RANDOM 146 mg/dL (70-110); POTASSIUM 3.3 mmol/L (3.5-5.1); SODIUM SERUM 146 mmol/L (136-145); UREA NITROGEN, BLOOD 15 mg/dL (7-18)
[2019-11-09 19:55] LABS: CALCIUM, TOTAL 9.2 mg/dL (8.8-10.5)
[2019-11-09 19:56] LABS: GLOMERULAR FILTR. RATE CALC > 60 mL/min (>60)
[2019-11-09 19:56] LABS: PHENCYCLIDINE SCREEN,URINE NEGATIVE (NEGATIVE)
[2019-11-09 20:00] LABS: ALANINE AMINOTRANSFERASE 22 U/L (12-78); ALBUMIN 3.3 g/dL (3.4-5.0); ALKALINE PHOSPHATASE 84 U/L (46-116); ASPARTATE AMINOTRANSFERASE 19 U/L (15-37); BILIRUBIN,TOTAL 0.5 mg/dL (0.1-1.0); TOTAL PROTEIN, SERUM 7.1 g/dL (6.4-8.2)
[2019-11-09 20:09] LABS: PHENYTOIN (DILANTIN) 0.5 mcg/mL (10.0-20.0)
[2019-11-09 20:10] LABS: BACTERIA,URINE Few /HPF (None Seen); SQUAMOUS EPITHELIAL CELL,UR Few /LPF (None Seen); WBC,URINE 0-2 /HPF (0-5)
[2019-11-09] MEDS ORDERED: ACETAMINOPHEN 325 MG TABLET PO PRN (20:45)
[2019-11-09] MEDS ORDERED: POTASSIUM CHLORIDE 20 MEQ ER TABLET PO ONE (20:45)
[2019-11-09] MEDS ORDERED: ONDANSETRON HCL 4 MG/2 ML VIAL IVP PRN (20:45)
[2019-11-09] MEDS ORDERED: 0.9% SODIUM CHLORIDE 10 ML SYRINGE IVP PRN (20:45)
[2019-11-09 20:52] LABS: FREE T4 (FREE THYROXINE) 1.35 ng/dL (0.76-1.46); THYROID STIMULATING HORMONE 0.64 uIU/mL (0.36-3.74)
[2019-11-09 23:29] LABS: ANION GAP 5 mmol/L (8-16); CALCIUM, TOTAL 9.4 mg/dL (8.8-10.5); CARBON DIOXIDE 30 mmol/L (22-29); CHLORIDE 106 mmol/L (98-107); CREATININE 0.76 mg/dL (0.60-1.30); GLUCOSE,RANDOM 84 mg/dL (70-110); POTASSIUM 4.1 mmol/L (3.5-5.1); SODIUM SERUM 141 mmol/L (136-145); UREA NITROGEN, BLOOD 13 mg/dL (7-18)
[2019-11-09 23:31] LABS: GLOMERULAR FILTR. RATE CALC > 60 mL/min (>60)
[2019-11-10] MEDS ORDERED: ZOLPIDEM TARTRATE 10 MG TABLET PO PRN (17:15)
[2019-11-10] MEDS ORDERED: LORazepam 2 MG TABLET PO PRN (17:15)
[2019-11-10] MEDS ORDERED: HALOPERIDOL 5 MG TABLET PO PRN (17:15)
[2019-11-10 19:02] VITALS: BP 147/81
[2019-11-10 19:29] VITALS: BP 147/91
[2019-11-10] MEDS ORDERED: PNEUMOCOCCAL VACCINE POLYVALENT 0.5 ML VIAL [PPSV23] IM ONE (20:00)
[2019-11-11 05:54] VITALS: BP 132/94
[2019-11-11 08:10] VITALS: BP 132/87
[2019-11-11] MEDS: ASPIRIN 81 MG CHEWABLE TABLET PO SCH (08:21)
[2019-11-11] MEDS: ATORVASTATIN CALCIUM 10 MG TABLET PO SCH (08:21)
[2019-11-11] MEDS: AmLODIPine BESYLATE 5 MG TABLET PO SCH (08:21)
[2019-11-11] MEDS: PHENYTOIN 100 MG/4 ML SUSPENSION UDCUP PO SCH ×2 (08:21→16:14)
[2019-11-11] MEDS: OMEPRAZOLE 20 MG CAPSULE PO SCH (08:21)
[2019-11-11] MEDS: MULTIVITAMINS WITH MINERALS, THERAPEUTIC TABLET PO SCH (12:27)
[2019-11-11] MEDS: QUEtiapine FUMARATE 25 MG TABLET PO SCH (16:14)
[2019-11-11 17:06] VITALS: BP 138/82
[2019-11-11] MEDS ORDERED: ONDANSETRON HCL 4 MG TABLET PO PRN (22:45)
[2019-11-11] MEDS ORDERED: ALBUTEROL SULFATE HFA 90 MCG/PUFF 8 GM INHALER IH PRN (22:45)
[2019-11-11] MEDS ORDERED: IBUPROFEN 600 MG TABLET PO PRN (22:45)
[2019-11-11] MEDS ORDERED: MAG HYDROX/AL HYDROX/SIMETH ES 30 ML SUSPENSION UDCUP PO PRN (22:45)
[2019-11-11] MEDS ORDERED: BACITRACIN 28.4 GM OINTMENT TP PRN (22:45)
[2019-11-11] MEDS ORDERED: DOCUSATE SODIUM 100 MG CAPSULE PO PRN (22:45)
[2019-11-11] MEDS ORDERED: ACETAMINOPHEN 325 MG TABLET PO PRN (22:45)
[2019-11-11] MEDS ORDERED: BENZOCAINE/MENTHOL LOZENGE MM PRN (22:45)
[2019-11-11] MEDS ORDERED: MAGNESIUM HYDROXIDE SUSPENSION 30 ML UDCUP PO PRN (22:45)
[2019-11-11] MEDS ORDERED: PETROLATUM,WHITE 28 GM JELLY TP PRN (22:45)
[2019-11-11] MEDS ORDERED: LOPERAMIDE HCL 2 MG CAPSULE PO PRN (22:45)
[2019-11-11] MEDS ORDERED: CloNIDine HCL 0.1 MG TABLET PO PRN (22:45)
[2019-11-12 03:21] VITALS: BP 129/84
[2019-11-12 08:23] VITALS: BP 118/60
[2019-11-12] MEDS: QUEtiapine FUMARATE 25 MG TABLET PO SCH ×2 (08:54→16:18)
[2019-11-12] MEDS: PHENYTOIN 100 MG/4 ML SUSPENSION UDCUP PO SCH ×2 (08:54→16:18)
[2019-11-12] MEDS: ATORVASTATIN CALCIUM 10 MG TABLET PO SCH (08:54)
[2019-11-12] MEDS: MULTIVITAMINS WITH MINERALS, THERAPEUTIC TABLET PO SCH (08:54)
[2019-11-12] MEDS: ASPIRIN 81 MG CHEWABLE TABLET PO SCH (08:54)
[2019-11-12] MEDS: AmLODIPine BESYLATE 5 MG TABLET PO SCH (08:54)
[2019-11-12] MEDS: OMEPRAZOLE 20 MG CAPSULE PO SCH (08:54)
[2019-11-12 16:03] VITALS: BP 109/66
[2019-11-13 06:32] VITALS: BP 123/62
[2019-11-13] MEDS: AmLODIPine BESYLATE 5 MG TABLET PO SCH (09:00)
[2019-11-13 09:40] VITALS: BP 108/52
[2019-11-13] MEDS: PHENYTOIN 100 MG/4 ML SUSPENSION UDCUP PO SCH ×2 (09:43→16:34)
[2019-11-13] MEDS: OMEPRAZOLE 20 MG CAPSULE PO SCH (09:44)
[2019-11-13] MEDS: ASPIRIN 81 MG CHEWABLE TABLET PO SCH (09:44)
[2019-11-13] MEDS: QUEtiapine FUMARATE 25 MG TABLET PO SCH ×2 (09:44→16:34)
[2019-11-13] MEDS: ATORVASTATIN CALCIUM 10 MG TABLET PO SCH (09:44)
[2019-11-13] MEDS: MULTIVITAMINS WITH MINERALS, THERAPEUTIC TABLET PO SCH (09:44)
[2019-11-13 16:03] VITALS: BP 125/60
[2019-11-14 08:22] VITALS: BP 127/69
[2019-11-14] MEDS: ASPIRIN 81 MG CHEWABLE TABLET PO SCH (08:50)
[2019-11-14] MEDS: PHENYTOIN 100 MG/4 ML SUSPENSION UDCUP PO SCH ×3 (08:51→16:34)
[2019-11-14] MEDS: ATORVASTATIN CALCIUM 10 MG TABLET PO SCH (08:51)
[2019-11-14] MEDS: AmLODIPine BESYLATE 5 MG TABLET PO SCH (08:52)
[2019-11-14] MEDS: MULTIVITAMINS WITH MINERALS, THERAPEUTIC TABLET PO SCH (08:52)
[2019-11-14] MEDS: QUEtiapine FUMARATE 25 MG TABLET PO SCH ×2 (08:52→16:34)
[2019-11-14] MEDS: OMEPRAZOLE 20 MG CAPSULE PO SCH (08:52)
[2019-11-14 16:02] VITALS: BP 121/68
[2019-11-15 06:23] VITALS: BP 122/98
[2019-11-15 08:11] VITALS: BP 121/86
[2019-11-15] MEDS: PHENYTOIN 100 MG/4 ML SUSPENSION UDCUP PO SCH ×3 (08:22→16:39)
[2019-11-15] MEDS: ATORVASTATIN CALCIUM 10 MG TABLET PO SCH (08:22)
[2019-11-15] MEDS: OMEPRAZOLE 20 MG CAPSULE PO SCH (08:22)
[2019-11-15] MEDS: MULTIVITAMINS WITH MINERALS, THERAPEUTIC TABLET PO SCH (08:22)
[2019-11-15] MEDS: QUEtiapine FUMARATE 25 MG TABLET PO SCH ×2 (08:22→16:39)
[2019-11-15] MEDS: ASPIRIN 81 MG CHEWABLE TABLET PO SCH (08:22)
[2019-11-15] MEDS: AmLODIPine BESYLATE 5 MG TABLET PO SCH (08:22)
[2019-11-15] MEDS: FLUoxetine HCL 20 MG CAPSULE PO SCH (12:38)
[2019-11-15 16:09] VITALS: BP 108/60
[2019-11-16 00:03] VITALS: BP 130/68
[2019-11-16 08:11] VITALS: BP 116/60
[2019-11-16] MEDS: AmLODIPine BESYLATE 5 MG TABLET PO SCH (08:18)
[2019-11-16] MEDS: ATORVASTATIN CALCIUM 10 MG TABLET PO SCH (08:18)
[2019-11-16] MEDS: QUEtiapine FUMARATE 25 MG TABLET PO SCH ×2 (08:18→16:37)
[2019-11-16] MEDS: MULTIVITAMINS WITH MINERALS, THERAPEUTIC TABLET PO SCH (08:18)
[2019-11-16] MEDS: OMEPRAZOLE 20 MG CAPSULE PO SCH (08:18)
[2019-11-16] MEDS: PHENYTOIN 100 MG/4 ML SUSPENSION UDCUP PO SCH ×3 (08:18→16:36)
[2019-11-16] MEDS: FLUoxetine HCL 20 MG CAPSULE PO SCH (08:18)
[2019-11-16] MEDS: ASPIRIN 81 MG CHEWABLE TABLET PO SCH (08:18)
[2019-11-16 16:43] VITALS: BP 127/61
[2019-11-17 00:56] VITALS: BP 112/65
[2019-11-17 08:25] VITALS: BP 114/62
[2019-11-17] MEDS: ASPIRIN 81 MG CHEWABLE TABLET PO SCH (08:28)
[2019-11-17] MEDS: QUEtiapine FUMARATE 25 MG TABLET PO SCH ×2 (08:28→16:13)
[2019-11-17] MEDS: MULTIVITAMINS WITH MINERALS, THERAPEUTIC TABLET PO SCH (08:28)
[2019-11-17] MEDS: OMEPRAZOLE 20 MG CAPSULE PO SCH (08:28)
[2019-11-17] MEDS: PHENYTOIN 100 MG/4 ML SUSPENSION UDCUP PO SCH ×3 (08:28→16:13)
[2019-11-17] MEDS: ATORVASTATIN CALCIUM 10 MG TABLET PO SCH (08:29)
[2019-11-17] MEDS: AmLODIPine BESYLATE 5 MG TABLET PO SCH (08:29)
[2019-11-17] MEDS: FLUoxetine HCL 20 MG CAPSULE PO SCH (08:29)
[2019-11-17 16:24] VITALS: BP 123/62
[2019-11-18 05:06] VITALS: BP 128/62
[2019-11-18] MEDS: ASPIRIN 81 MG CHEWABLE TABLET PO SCH (08:23)
[2019-11-18] MEDS: AmLODIPine BESYLATE 5 MG TABLET PO SCH (08:23)
[2019-11-18] MEDS: MULTIVITAMINS WITH MINERALS, THERAPEUTIC TABLET PO SCH (08:23)
[2019-11-18] MEDS: ATORVASTATIN CALCIUM 10 MG TABLET PO SCH (08:23)
[2019-11-18] MEDS: QUEtiapine FUMARATE 25 MG TABLET PO SCH ×2 (08:24→16:49)
[2019-11-18] MEDS: FLUoxetine HCL 20 MG CAPSULE PO SCH (08:24)
[2019-11-18] MEDS: PHENYTOIN 100 MG/4 ML SUSPENSION UDCUP PO SCH ×3 (08:24→16:49)
[2019-11-18] MEDS: OMEPRAZOLE 20 MG CAPSULE PO SCH (08:24)
[2019-11-18 08:26] VITALS: BP 129/58
[2019-11-18 20:07] VITALS: BP 123/69
[2019-11-19 06:51] VITALS: BP 132/59
[2019-11-19 08:33] VITALS: BP 133/60
[2019-11-19] MEDS: PHENYTOIN 100 MG/4 ML SUSPENSION UDCUP PO SCH ×3 (08:55→16:38)
[2019-11-19] MEDS: ASPIRIN 81 MG CHEWABLE TABLET PO SCH (08:56)
[2019-11-19] MEDS: ATORVASTATIN CALCIUM 10 MG TABLET PO SCH (08:56)
[2019-11-19] MEDS: QUEtiapine FUMARATE 25 MG TABLET PO SCH ×2 (08:56→16:38)
[2019-11-19] MEDS: FLUoxetine HCL 20 MG CAPSULE PO SCH (08:56)
[2019-11-19] MEDS: MULTIVITAMINS WITH MINERALS, THERAPEUTIC TABLET PO SCH (08:56)
[2019-11-19] MEDS: OMEPRAZOLE 20 MG CAPSULE PO SCH (08:56)
[2019-11-19] MEDS: AmLODIPine BESYLATE 5 MG TABLET PO SCH (08:56)
[2019-11-19 16:16] VITALS: BP 136/59
[2019-11-20 08:01] VITALS: BP 140/67
[2019-11-20] MEDS: FLUoxetine HCL 20 MG CAPSULE PO SCH (08:42)
[2019-11-20] MEDS: PHENYTOIN 100 MG/4 ML SUSPENSION UDCUP PO SCH ×3 (08:42→16:34)
[2019-11-20] MEDS: MULTIVITAMINS WITH MINERALS, THERAPEUTIC TABLET PO SCH (08:42)
[2019-11-20] MEDS: ATORVASTATIN CALCIUM 10 MG TABLET PO SCH (08:42)
[2019-11-20] MEDS: ASPIRIN 81 MG CHEWABLE TABLET PO SCH (08:42)
[2019-11-20] MEDS: QUEtiapine FUMARATE 25 MG TABLET PO SCH ×2 (08:42→16:34)
[2019-11-20] MEDS: OMEPRAZOLE 20 MG CAPSULE PO SCH (08:42)
[2019-11-20] MEDS: AmLODIPine BESYLATE 5 MG TABLET PO SCH (08:43)
[2019-11-20 16:10] VITALS: BP 145/76
[2019-11-20] MEDS ORDERED: RisperiDONE 1 MG TABLET PO SCH (22:10)
[2019-11-20] MEDS ORDERED: LORazepam 1 MG TABLET PO PRN (22:15)
[2019-11-20] MEDS: LORazepam 0.5 MG TABLET PO SCH (22:20)
[2019-11-21 06:49] VITALS: BP 135/51
[2019-11-21 08:32] VITALS: BP 114/65
[2019-11-21] MEDS: PHENYTOIN 100 MG/4 ML SUSPENSION UDCUP PO SCH ×3 (08:33→17:26)
[2019-11-21] MEDS: AmLODIPine BESYLATE 5 MG TABLET PO SCH (08:33)
[2019-11-21] MEDS: OMEPRAZOLE 20 MG CAPSULE PO SCH (08:33)
[2019-11-21] MEDS: LORazepam 0.5 MG TABLET PO SCH ×2 (08:33→17:26)
[2019-11-21] MEDS: ATORVASTATIN CALCIUM 10 MG TABLET PO SCH (08:34)
[2019-11-21] MEDS: MULTIVITAMINS WITH MINERALS, THERAPEUTIC TABLET PO SCH (08:34)
[2019-11-21] MEDS: ASPIRIN 81 MG CHEWABLE TABLET PO SCH (08:34)
[2019-11-21] MEDS: FLUoxetine HCL 20 MG CAPSULE PO SCH (08:34)
[2019-11-21] MEDS: RisperiDONE 0.5 MG TABLET PO SCH ×2 (09:56→17:26)
[2019-11-21 16:11] VITALS: BP 111/60
[2019-11-21] MEDS: RisperiDONE 2 MG TABLET PO SCH (20:28)
[2019-11-21] MEDS: MIRTAZAPINE 15 MG TABLET PO SCH (20:28)
[2019-11-22 01:42] VITALS: BP 128/60
[2019-11-22 08:04] VITALS: BP 151/64
[2019-11-22] MEDS: OMEPRAZOLE 20 MG CAPSULE PO SCH (08:23)
[2019-11-22] MEDS: AmLODIPine BESYLATE 5 MG TABLET PO SCH (08:23)
[2019-11-22] MEDS: ATORVASTATIN CALCIUM 10 MG TABLET PO SCH (08:23)
[2019-11-22] MEDS: MULTIVITAMINS WITH MINERALS, THERAPEUTIC TABLET PO SCH (08:24)
[2019-11-22] MEDS: RisperiDONE 0.5 MG TABLET PO SCH ×2 (08:24→16:44)
[2019-11-22] MEDS: ASPIRIN 81 MG CHEWABLE TABLET PO SCH (08:24)
[2019-11-22] MEDS: LORazepam 0.5 MG TABLET PO SCH ×2 (08:24→16:44)
[2019-11-22] MEDS: FLUoxetine HCL 20 MG CAPSULE PO SCH (08:24)
[2019-11-22 08:28] VITALS: BP 142/62
[2019-11-22] MEDS: PHENYTOIN 100 MG/4 ML SUSPENSION UDCUP PO SCH ×3 (08:35→16:44)
[2019-11-22 10:41] VITALS: BP 127/68
[2019-11-22 16:06] VITALS: BP 134/65
[2019-11-22] MEDS ORDERED: RisperiDONE 0.5 MG TABLET PO PRN (21:15)
[2019-11-22 21:18] VITALS: BP 132/56
[2019-11-22] MEDS: RisperiDONE 2 MG TABLET PO SCH (21:30)
[2019-11-22] MEDS: MIRTAZAPINE 15 MG TABLET PO SCH (21:30)
[2019-11-23 03:47] VITALS: BP 126/57
[2019-11-23 07:50] LABS: BASOPHILS % (AUTO) 0.2 % (0.0-2.0); EOSINOPHILS % (AUTO) 0 % (1.0-6.0); HEMATOCRIT 35.7 % (36-46); HEMOGLOBIN 11.8 g/dL (12.0-16.0); LYMPHOCYTES # (AUTO) 1.2 K/uL (1.0-4.8); LYMPHOCYTES % (AUTO) 11.3 % (22.0-44.0); MEAN CORPUSCULAR HEMOGLOBIN 29.8 pg (26.0-34.0); MEAN CORPUSCULAR HGB CONC 33.1 G/dL (31.0-37.0); MEAN CORPUSCULAR VOLUME 90 fL (80-100); MONOCYTES # (AUTO) 0.6 K/uL (0.1-1.0); MONOCYTES % (AUTO) 5.9 % (2.0-9.0); NEUTROPHILS # (AUTO) 8.6 K/uL (1.8-7.7); NEUTROPHILS % (AUTO) 82.6 % (40.0-70.0); PLATELET COUNT (AUTO) 308 K/uL (150-450); RED BLOOD CELL COUNT(AUTO) 3.96 MIL/uL (4.00-5.20); RED CELL DISTRIBUTION WIDTH 16.9 % (11.5-14.5)
[2019-11-23 08:15] LABS: ALANINE AMINOTRANSFERASE 19 U/L (12-78); ALBUMIN 3.2 g/dL (3.4-5.0); ALKALINE PHOSPHATASE 83 U/L (46-116); ANION GAP 2 mmol/L (8-16); ASPARTATE AMINOTRANSFERASE 19 U/L (15-37); BILIRUBIN,TOTAL 0.3 mg/dL (0.1-1.0); CALCIUM, TOTAL 8.9 mg/dL (8.8-10.5); CARBON DIOXIDE 31 mmol/L (22-29); CHLORIDE 101 mmol/L (98-107); CREATININE 0.76 mg/dL (0.60-1.30); GLUCOSE,RANDOM 126 mg/dL (70-110); PHOSPHORUS 2.9 mg/dL (2.5-4.9); POTASSIUM 4.2 mmol/L (3.5-5.1); SODIUM SERUM 134 mmol/L (136-145); TOTAL PROTEIN, SERUM 6.5 g/dL (6.4-8.2); UREA NITROGEN, BLOOD 15 mg/dL (7-18)
[2019-11-23 08:22] LABS: GLOMERULAR FILTR. RATE CALC > 60 mL/min (>60)
[2019-11-23] MEDS: ATORVASTATIN CALCIUM 10 MG TABLET PO SCH (08:32)
[2019-11-23] MEDS: MULTIVITAMINS WITH MINERALS, THERAPEUTIC TABLET PO SCH (08:32)
[2019-11-23] MEDS: AmLODIPine BESYLATE 5 MG TABLET PO SCH (08:32)
[2019-11-23] MEDS: FLUoxetine HCL 20 MG CAPSULE PO SCH (08:32)
[2019-11-23] MEDS: OMEPRAZOLE 20 MG CAPSULE PO SCH (08:32)
[2019-11-23] MEDS: RisperiDONE 0.5 MG TABLET PO SCH ×2 (08:32→16:12)
[2019-11-23] MEDS: ASPIRIN 81 MG CHEWABLE TABLET PO SCH (08:32)
[2019-11-23 08:34] VITALS: BP 116/69
[2019-11-23 16:07] VITALS: BP 120/60
[2019-11-23 19:31] VITALS: BP 124/58
[2019-11-23 20:06] VITALS: BP 135/55
[2019-11-23] MEDS: RisperiDONE 2 MG TABLET PO SCH (21:21)
[2019-11-23] MEDS: MIRTAZAPINE 15 MG TABLET PO SCH (21:21)
[2019-11-23 21:23] VITALS: BP 129/67
[2019-11-24 00:21] VITALS: BP 125/60
[2019-11-24] MEDS ORDERED: MULTIVITAMINS WITH IRON TABLET PO SCH (07:30)
[2019-11-24 08:50] VITALS: BP 123/62
[2019-11-24] MEDS: ASPIRIN 81 MG CHEWABLE TABLET PO SCH (08:52)
[2019-11-24] MEDS: ATORVASTATIN CALCIUM 10 MG TABLET PO SCH (08:52)
[2019-11-24] MEDS: RisperiDONE 0.5 MG TABLET PO SCH (08:52)
[2019-11-24] MEDS: AmLODIPine BESYLATE 5 MG TABLET PO SCH (08:52)
[2019-11-24] MEDS: OMEPRAZOLE 20 MG CAPSULE PO SCH (08:52)
[2019-11-24] MEDS ORDERED: FLUoxetine HCL 20 MG CAPSULE PO SCH (09:00)
[2019-11-24] MEDS ORDERED: RISP2 PO (14:10)
[2019-11-24] MEDS ORDERED: FLUO-191 PO (14:10)
[2019-11-24] MEDS ORDERED: MIRT15TA6 PO (14:10)
[2019-11-24] MEDS ORDERED: PHENL PO (14:10)
[2019-11-24] MEDS ORDERED: RISP.5 PO (14:10)
[2019-11-25] MEDS ORDERED: PHENYTOIN 100 MG/4 ML SUSPENSION UDCUP PO SCH (09:00)
== END 2019-11-24 12:07 | disposition short-term general hospital (02) | DRG 885 ==
LOC: EMS 18:19 → 4E 11-10 12:13 → UNDOADMIN 11-10 12:13 → B2S 11-10 17:20
PROVIDERS: ADMIT Psychiatry & Neurology Psychiatry; ATTEND Psychiatry & Neurology Psychiatry
DX: F20.0 Paranoid schizophrenia (principal); E46 Unspecified protein-calorie malnutrition; E87.0 Hyperosmolality and hypernatremia; Z68.1 Body mass index [BMI] 19.9 or less, adult; E78.5 Hyperlipidemia, unspecified; E86.0 Dehydration; E87.6 Hypokalemia; F31.9 Bipolar disorder, unspecified; G40.909 Epilepsy, unspecified, not intractable, without status epilepticus; G47.00 Insomnia, unspecified; H05.403 Unspecified enophthalmos, bilateral; I10 Essential (primary) hypertension; I25.10 Atherosclerotic heart disease of native coronary artery without angina pectoris; K59.00 Constipation, unspecified; R62.7 Adult failure to thrive; Z79.82 Long term (current) use of aspirin; Z91.19 Patient's noncompliance with other medical treatment and regimen
CPT/HCPCS: 70450; 70486; 83735; 84100; 84439; 84443; 87081; G0480

== ENCOUNTER 2020-10-13 12:51 | Emergency (ER) | payer MEDICARE, MEDICAID ==
[~2020-10-13] VITALS: Ht 154.9 cm; Wt 46.4 kg
[~2020-10-13 12:51] MED LIST changes: -AMLO5TAB9 PO; -AMOX1TAB15 PO; -ASPI-728 PO; -ATOR10TA84 PO; +DIVA-80 PO; +OLAN5TAB30 PO; -OMEP20 PO; -PHENL PO
[2020-10-13 14:38] VITALS: BP 157/92
[2020-10-13 18:02] LABS: BASOPHILS % (AUTO) 0.7 % (0.0-2.0); EOSINOPHILS % (AUTO) 0.2 % (1.0-6.0); HEMOGLOBIN 14.2 g/dL (12.0-16.0); LYMPHOCYTES # (AUTO) 2.3 K/uL (1.0-4.8); LYMPHOCYTES % (AUTO) 24.3 % (22.0-44.0); MEAN CORPUSCULAR HEMOGLOBIN 29.4 pg (26.0-34.0); MEAN CORPUSCULAR HGB CONC 32.3 G/dL (31.0-37.0); MEAN CORPUSCULAR VOLUME 91 fL (80-100); MONOCYTES # (AUTO) 0.5 K/uL (0.1-1.0); MONOCYTES % (AUTO) 5.4 % (2.0-9.0); NEUTROPHILS # (AUTO) 6.6 K/uL (1.8-7.7); NEUTROPHILS % (AUTO) 69.4 % (40.0-70.0); PLATELET COUNT (AUTO) 343 K/uL (150-450); RED BLOOD CELL COUNT(AUTO) 4.84 MIL/uL (4.00-5.20); RED CELL DISTRIBUTION WIDTH 17.8 % (11.5-14.5)
[2020-10-13 18:10] LABS: ANION GAP 12 mmol/L (8-16); CALCIUM, TOTAL 10.3 mg/dL (8.8-10.5); CARBON DIOXIDE 26 mmol/L (22-29); CHLORIDE 105 mmol/L (98-107); CREATININE 0.88 mg/dL (0.60-1.30); GLUCOSE,RANDOM 96 mg/dL (70-110); SODIUM SERUM 143 mmol/L (136-145); UREA NITROGEN, BLOOD 20 mg/dL (7-18)
[2020-10-13 18:14] LABS: GLOMERULAR FILTR. RATE CALC > 60 mL/min (>60)
[2020-10-13 18:16] LABS: ALANINE AMINOTRANSFERASE 17 U/L (12-78); ALBUMIN 3.7 g/dL (3.4-5.0); ALKALINE PHOSPHATASE 88 U/L (46-116); ASPARTATE AMINOTRANSFERASE 23 U/L (15-37); BILIRUBIN,TOTAL 0.8 mg/dL (0.1-1.0); TOTAL PROTEIN, SERUM 8.1 g/dL (6.4-8.2)
== END 2020-10-13 18:51 | disposition left against medical advice (07) ==
LOC: EMS 12:51
DX: R55 Syncope and collapse (principal); F31.9 Bipolar disorder, unspecified; F20.9 Schizophrenia, unspecified; Z79.899 Other long term (current) drug therapy
CPT/HCPCS: 93005; 99284; 99285